=== PATIENT | female | born 1980 | race Caucasian/White ===

== ENCOUNTER 2019-01-10 21:00 | Emergency (ER) | payer MEDICAID, OTHER ==
[~2019-01-10] VITALS: Ht 167.6 cm; Wt 77.3 kg
[~2019-01-10 21:00] MED LIST: CYCL-1 PO; CYCL-120 PO; NAPR-56 PO
[2019-01-10] MEDS ORDERED: HYDR-4353 PO (22:21)
[2019-01-10] MEDS ORDERED: AMOX500C2 PO (22:21)
[2019-01-10] MEDS ORDERED: IBUP-1986 PO (22:21)
[2019-01-10] MEDS ORDERED: dexamethasone sod phosphate 10mg/ml inj IM STA (22:22)
[2019-01-10] MEDS ORDERED: HYDROcodone/acetaminophen 10/325mg tab PO ONE (22:25)
[2019-01-10] MEDS ORDERED: COROTSUS OT (22:46)
--- NOTE | 2019-01-10 23:01 | NUR ---
DISCUSED WITH PATIENT DISCHARGED ORDERS. PATIENT STATES " THE DOCTOR SAID I WAS GETTING EAR DROPS FOR MY EAR" SPOKE WITH DR MYERS WHO ADDEDD CORTISORIN OTIC SUSPENSION 4 GTTS TO R EAR QID FOR DAYS PRESCRIPTION. PT HAPPY
[2019-01-10 23:04] VITALS: BP 90/55
== END 2019-01-10 22:45 | disposition home or self-care (01) ==
LOC: ER 21:03
DX: H60.91 Unspecified otitis externa, right ear (principal); G43.909 Migraine, unspecified, not intractable, without status migrainosus; Z98.890 Other specified postprocedural states; Z98.51 Tubal ligation status
CPT/HCPCS: 96372; 99283; J1100

== ENCOUNTER 2019-01-12 17:18 | Emergency (ER) | payer OTHER ==
[~2019-01-12] VITALS: Ht 167.6 cm; Wt 86.4 kg
[~2019-01-12 17:18] MED LIST changes: +AMOX500C2 PO; +COROTSUS OT; +HYDR-4353 PO; +IBUP-1986 PO
[2019-01-12 17:48] VITALS: BP 111/76
[2019-01-12] MEDS ORDERED: HYDROcodone/acetaminophen 10/325mg tab PO ONE (19:10)
[2019-01-12] MEDS ORDERED: HYDR-3965 PO (20:18)
== END 2019-01-12 20:27 | disposition home or self-care (01) ==
LOC: ER 17:19
DX: H92.01 Otalgia, right ear (principal); L53.8 Other specified erythematous conditions; G43.909 Migraine, unspecified, not intractable, without status migrainosus; Z98.890 Other specified postprocedural states; Z98.51 Tubal ligation status; Z79.899 Other long term (current) drug therapy
CPT/HCPCS: 10060; 99283